=== PATIENT | female | born 2000 | race Two or more races ===

== ENCOUNTER → 2025-03-01 | Outpatient (CLI) | payer BC ==
[2025-03-01 17:34] LABS: PLATELET COUNT, AUTOMATED 321 10^3/uL (150-450)
[2025-03-01 17:56] LABS: IRON (FE) 77 UG/DL (50-170); PERCENT SATURATION 22.1 % (13.2-45.0)
[2025-03-01 19:18] LABS: Trichomonas vaginalis (AMP) NOT DETECTED (NEGATIVE)
[2025-03-01 19:42] LABS: GC DNA AMPLIFICATION NEGATIVE (NEGATIVE)
[2025-03-03 04:33] LABS: HIV 1&2 SCREEN NEGATIVE (NEGATIVE)
[2025-03-03 04:41] LABS: HEPATITIS C VIRUS ABY INDEX 0.04 INDEX (<0.8)
== END ==
LOC: M PLALAB 15:32
PROVIDERS: ATTEND Obstetrics & Gynecology
DX: O30.032 Twin pregnancy, monochorionic/diamniotic, second trimester (principal); Z13.79 Encounter for other screening for genetic and chromosomal anomalies; O99.012 Anemia complicating pregnancy, second trimester

== ENCOUNTER → 2025-03-01 | Outpatient (REF) | payer BC | LOC: M PLALAB 14:12 | PROVIDERS: ATTEND Obstetrics & Gynecology | DX: Z53.9 Procedure and treatment not carried out, unspecified reason (principal) ==

== ENCOUNTER → 2025-03-01 | Outpatient (REF) | payer BC ==
[2025-03-01 18:18] LABS: Trichomonas vaginalis (AMP) NOT DETECTED (NEGATIVE)
[2025-03-01 18:41] LABS: GC DNA AMPLIFICATION NEGATIVE (NEGATIVE)
== END ==
LOC: M SFHCWAGY 15:30
PROVIDERS: ATTEND Obstetrics & Gynecology
DX: O30.032 Twin pregnancy, monochorionic/diamniotic, second trimester (principal); Z3A.00 Weeks of gestation of pregnancy not specified